=== PATIENT | female | born 1950 | race Caucasian/White ===

== ENCOUNTER → 2017-01-12 | Outpatient (CLI) | payer MEDICARE, MEDICAID ==
[2017-01-12 16:51] LABS: ALANINE AMINOTRANSFERASE 60 U/L (9-52); ASPARTATE AMINO TRANSFERASE 66 U/L (14-36)
== END ==
LOC: LAB 16:17
PROVIDERS: ATTEND Internal Medicine Infectious Disease
DX: G40.909 Epilepsy, unspecified, not intractable, without status epilepticus (principal); Z79.899 Other long term (current) drug therapy
CPT/HCPCS: 36415; 80185; 84450; 84460

== ENCOUNTER → 2017-03-04 | Outpatient (CLI) | payer MEDICARE, MEDICAID ==
[2017-03-04 17:05] LABS: ARTERIAL BLOOD BASE EXCESS 7.5 mmol/L; ARTERIAL BLOOD O2 SATURATION 95.3 % (94-98)
== END ==
LOC: OD 16:03
PROVIDERS: ATTEND Internal Medicine Pulmonary Disease
DX: J96.11 Chronic respiratory failure with hypoxia (principal)
CPT/HCPCS: 36600; 82803

== ENCOUNTER → 2017-03-11 | Outpatient (CLI) | payer MEDICARE, MEDICAID | LOC: RAD 08:16 | PROVIDERS: ATTEND Internal Medicine Pulmonary Disease | DX: R91.1 Solitary pulmonary nodule (principal) | CPT/HCPCS: 71250 ==

== ENCOUNTER 2017-05-13 22:38 | Emergency (ER) | payer MEDICARE, MEDICAID ==
--- NOTE | 2017-05-14 00:55 | ER Document Report ---
ED General - General Chief Complaint: Other Stated Complaint: WELL CHECK AND POSSIBLE RASH Time Seen by Provider: 05/14/17 00:05 Cannot obtain history due to: Dementia Notes: Patient is a 66-year-old female with past medical history of Alzheimer's dementia who presents by EMS for unclear reasons. It appears that the patient was observed sitting on the side of the road, EMS was concerned that she might walking the street so they stopped and offered transport to the emergency department. Patient was noted to have bugs on her but did not have any acute medical complaint. To me patient denies any acute medical concerns. She states she would like to go home. TRAVEL OUTSIDE OF THE [place] IN LAST 30 DAYS: No - Related Data Allergies/Adverse Reactions: No Known Allergies Allergy (Unverified 10/27/15 20:06) Past Medical History - General Information source: Patient, Emergency Med Personnel Cannot obtain history due to: Dementia - Social History Smoking Status: Current Every Day Smoker Frequency of alcohol use: None Drug Abuse: None Family History: Reviewed & Not Pertinent Patient has suicidal ideation: No Patient has homicidal ideation: No - Past Medical History Cardiac Medical History: Reports: Hx Hypertension Pulmonary Medical History: Reports: Hx COPD Neurological Medical History: Reports: Hx Seizures Endocrine Medical History: Reports: Hx Diabetes Mellitus Type 2 Renal/ Medical History: Denies: Hx Peritoneal Dialysis Past Surgical History: Reports: Hx Appendectomy, Hx Hysterectomy, Hx Orthopedic Surgery, Hx Tonsillectomy Review of Systems - Review of Systems Notes: Constitutional: Negative for fever. HENT: Negative for sore throat. Eyes: Negative for visual changes. Cardiovascular: Negative for chest pain. Respiratory: Negative for shortness of breath. Gastrointestinal: Negative for abdominal pain, vomiting or diarrhea. Genitourinary: Negative for dysuria. Musculoskeletal: Negative for back pain. Skin: Negative for rash. Neurological: Negative for headaches, weakness or numbness. 10 point ROS negative except as marked above and in HPI. Physical Exam - Vital signs Vitals: Temp Pulse Resp BP Pulse Ox 97.7 F 102 H 20 112/88 H 95 05/13/17 23:08 05/13/17 23:08 05/13/17 23:08 05/13/17 23:08 05/13/17 23:08 Interpretation: Tachycardic Notes: PHYSICAL EXAMINATION: GENERAL: Somewhat cachectic, appears older than stated age, in no distress HEAD: Atraumatic, normocephalic. EYES: Pupils equal round and reactive to light, extraocular movements intact, sclera anicteric, conjunctiva are normal. ENT: nares patent, oropharynx clear without exudates. Moist mucous membranes. NECK: Normal range of motion, supple without lymphadenopathy LUNGS: Breath sounds clear to auscultation bilaterally and equal. No wheezes rales or rhonchi. HEART: Regular rate and rhythm without murmurs ABDOMEN: Soft, nontender, normoactive bowel sounds. No guarding, no rebound. No masses appreciated. EXTREMITIES: Normal range of motion, no pitting or edema. No cyanosis. NEUROLOGICAL: No focal neurological deficits. Moves all extremities spontaneously and on command. PSYCH: Oriented to person, place and year. SKIN: Warm, Dry, normal turgor, no rashes or lesions noted. Course - Re-evaluation Re-evalutation: 05/14/17 00:53 Patient presents with no clear complaint. She was picked up the side of the road by EMS truck when she was noted to be sitting there. She denies any acute complaints to me. She has dementia at baseline. However for me she is alert and oriented to person, place and year. Patient apparently was noted to have bugs on her although I do not appreciate these on exam. Patient is requesting to go home and despite her mild dementia does have capacity, has no acute medical complaints or indication for further evaluation by labs or imaging. At this time will discharge with return precautions and follow-up recommendations. Verbal discharge instructions given a the bedside and opportunity for questions given. Patient is in agreement with this plan and has verbalized understanding of return precautions and the need for primary care follow-up in the next 24-72 hours. - Vital Signs Vital signs: Temp Pulse Resp BP Pulse Ox 97.7 F 102 H 20 112/88 H 95 05/13/17 23:08 05/13/17 23:08 05/13/17 23:08 05/13/17 23:08 05/13/17 23:08 Discharge - Discharge Clinical Impression: Well adult health check Dementia Qualifiers: Dementia type: unspecified type Dementia behavioral disturbance: without behavioral disturbance Qualified Code(s): F03.90 - Unspecified dementia without behavioral disturbance Condition: Good Disposition: HOME, SELF-CARE Additional Instructions: Please return to the emergency room immediately if you experience any concerning symptoms including high fevers, severe headache, chest pain, difficulty breathing, abdominal pain, slurred speech, numbness or weakness in your arms or legs, or any other symptom that concerns you.
[2017-05-14 03:43] VITALS: BP 129/62
== END 2017-05-14 03:43 | disposition home or self-care (01) ==
LOC: ER 22:38
DX: G30.9 Alzheimer's disease, unspecified (principal); F02.80 Dementia in other diseases classified elsewhere, unspecified severity, without behavioral disturbance, psychotic disturbance, mood disturbance, and anxiety; R21 Rash and other nonspecific skin eruption; F17.200 Nicotine dependence, unspecified, uncomplicated
CPT/HCPCS: 99283